=== PATIENT | female | born 2005 | race Caucasian/White ===

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

== ENCOUNTER 2024-10-22 01:37 | Emergency (ER) | payer OTHER, SELFPAY ==
[2024-10-22 01:41] VITALS: BP 131/89; PULSE 88; TEMP 36.8; O2SAT 99; BMI 28.3
--- OUTSIDE RECORDS SUMMARY | 2024-10-22 01:47 | XMS_ITS | CCD ---
Author Organization [facility] Care Team Providers Care Mixing Plant Operator Name Role Phone CARMITA DEVI Unavailable Unavailable MABLE CHAPA Unavailable Unavailable MABLE POLK Admitting Unavailable MABLE POLK Attending Unavailable MANPREET CALDWELL Consulting Unavailable MABLE POLK Consulting Unavailable SHERIDAN LEBLANC Consulting Unavailable RICHARD PANCHAL Referring Unavailable Irma Lobo Attending Unavailable Irma Lobo Admitting Unavailable Medications Current Medications Medication Drug Class(es) Dates Sig (Normalized) Sig (Original) phenazopyridine hydrochloride 200 mg oral tablet (1 source) Start: 07-05-2024 take 1 tablet by mouth three times daily as needed for pain Phenazopyridine (Pyridium) 200 mg tablet Active 200 MG PO Three times daily as needed for pain 9 July 05, 2024 12:00am sulfamethoxazole 800 mg / trimethoprim 160 mg oral tablet (1 source) Dihydrofolate Reductase Inhibitor Antibacterial, Sulfonamide Antimicrobial Start: 07-05-2024 take 1 tablet by mouth every twelve hours Sulfamethoxazole-Tr imethoprim 800-160 mg tablet Active 1 TAB PO Every 12 hours 10 July 05, 2024 12:00am Problems Active Problems Problem Classification Problem Date Documented Da te Episodic/Chronic Suicide and intentional self-inflicted injury (3 sources) Suicidal ideations; Translations: [SUICIDAL IDEATIONS] Onset: 06-05-2021 Episodic Unclassified (1 source) CONTACT W/AND (SUSP) EXPOS COVID-19; Translations: [CONTACT W/AND (SUSP) EXPOS COVID-19] Onset: 06-08-2021 Urinary tract infections (1 source) Urinary tract infection, site not specified; Translations: [Urinary tract infection, site not specified] Onset: 07-05-2024 Episodic Past or Other Problems Problem Classification Problem Date Documented Da te Episodic/Chronic Other ear and sense organ disorders (1 source) Abscess of left external ear; Translations: [Abscess of left external ear] Onset: 06-27-2017 Episodic Results Test Name Value Interpretation Reference Range Facil itfrancisco Urine Cultureon 07-05-2024 Bacteria identified Cx Nom (U) ORGANISM: Escherichia coli (O:ESCCOL) [place] Count >100,000 Aerobic TILA Charge (NMIC56) ----- SUSCEPTIBILITY ---- ORGANISM: O:ESCCOL ANTIBIOTIC INTERPRETATION TILA Amikacin S <16 Amoxacillin/K Clavulanate S <8 Ampicillin S <8 Ampicillin/Sulbactam S <4 Aztreonam S <4 Cefazolin S <2 Cefepime S <2 Ceftazidime S <1 Ceftazidime/Avibacta m S <4 Ceftolozane/Tazobact am S <2 Ceftriaxone S <1 Cefuroxime S <4 Ciprofloxacin S <0.25 Ertapenem S <0.5 Gentamicin S <2 Levofloxacin S <0.5 Meropenem S <1 Meropenem/Vaborbacta m S <2 Nitrofurantoin S <32 Piperacillin/Tazobac leavitt S <8 Tetracycline S <4 Tigecycline S <2 Tobramycin S <2 Trimethoprim/Sulfame thoxazole S <0.5 S = SUSCEPTIBLE I = INTERMEDIATE R = RESISTANT BLANK = DATA NOT AVAILABLE, OR DRUG NOT ADVISABLE OR TESTED R* = RESISTANCE DUE TO EXTENDED SPECTRUM BETA-LACTAMASES ESBL = EXTENDED SPECTRUM BETA-LACTAMASE TFG = THYMIDINE-DEPENDENT STRAIN MUNA = BETA-LACTAMASE POSITIVE IB = INDUCIBLE BETA-LACTAMASE. APPEARS IN PLACE OF 'S' WITH SPECIES KNOWN TO POSSESS INDUCIBLE BETA-LACTAMASES. POTENTIALLY THEY MAY BECOME RESISTANT TO ALL B-LACTAM DRUGS. PERFORMED BY: [place] [address] PATHOLOGIST FUND CONTROLLER CHIKIS GRIFFIN M.D. Normal [facility] Comment on above: Performed By: #### C UU #### [address] US PELVISon 02-13-2024 US PELVIS FINDINGS: No prior examinations available for comparison. Uterus 5.8 x 2.5 x 4.4 cm Endometrium 2 mm Right ovary 4.2 x 1.7 x 3.0 cm Left ovary 3.0 x 1.6 x 1.7 cm Normal uterine orientation and morphology are identified. No worrisome mass lesions are seen. Small amount of pelvic fluid is present (5 cc) Bilateral ovaries demonstrate small peripheral follicles, unremarkable in appearance. Overall appearance is normal for this age. IMPRESSION: 1. Bilateral ovarian follicles, largest within the right ovary (1.2 cm), no suspicious ovarian/adnexal mass 2. Small amount of pelvic fluid 3. Normal uterus TRANSCRIBED BY: ELECTRONICALLY SIGNED BY: Josh Thomas MD Normal Not Available ACETAMINOPHENon 06-05-2021 Acetaminophen [Mass/Vol] ug/mL Critically low 10.1-30.0 [facility] Comment on above: Performed By: #### S ALYC, ACET, CMP, ETH #### [facility] [address] [place] [address] Dr. Phillip Rosas CBC AUTO DIFFon 06-05-2021 BASO # 0.1 103/ul Normal 0.0-0.1 [facility] Comment on above: Performed By: #### C BC #### [facility] [address] [place] [address] Dr. Phillip Rosas Basophils/100 WBC (Bld) 0.8 % Normal 0.2-2.0 [facility] Comment on above: Performed By: #### C BC #### [facility] [address] [place] [address] Dr. Phillip Rosas EO # 0.2 103/ul Normal 0.0-0.7 [facility] Comment on above: Performed By: #### C BC #### [facility] [address] [place] [address] Dr. Phillip Rosas Eosinophils/100 WBC (Bld) 3.0 % Normal 0.9-7.0 [facility] Comment on above: Performed By: #### C BC #### [facility] [address] [place] [address] Dr. Phillip Rosas Erythrocyte distribution width (RBC) [Ratio] 14.4 % Normal 11.0-15.0 [facility] Comment on above: Performed By: #### C BC #### [facility] [address] [place] [address] Dr. Phillip Rosas Hematocrit (Bld) [Volume fraction] 32.8 % Critically low 36.0-48.0 [facility] Comment on above: Performed By: #### C BC #### [facility] [address] [place] [address] Dr. Phillip Rosas Hemoglobin (Bld) [Mass/Vol] 10.7 g/dL Critically low 12.0-16.0 [facility] Comment on above: Performed By: #### C BC #### [facility] [address] [place] [address] Dr. Phillip Rosas IG # 0.02 10e3/ul Normal 0.00-0.03 [facility] Comment on above: Performed By: #### C BC #### [facility] [address] [place] [address] Dr. Phillip Rosas IG % 0.3 % Normal 0.0-0.5 [facility] Comment on above: Performed By: #### C BC #### [facility] [address] [place] [address] Dr. Phillip Rosas LYMPH # 1.3 103/ul Normal 1.2-3.8 [facility] Comment on above: Performed By: #### C BC #### [facility] [address] [place] [address] Dr. Phillip Rosas Lymphocytes/100 WBC (Bld) 21.3 % Normal 20.5-60.0 [facility] Comment on above: Performed By: #### C BC #### [facility] [address] [place] [address] Dr. Phillip Rosas MANUAL DIFF REQ NO Normal [facility] Comment on above: Performed By: #### C BC #### [facility] [address] [place] [address] Dr. Phillip Rosas MCH (RBC) [Entitic mass] 28.2 pg Normal 26.7-34.0 [facility] Comment on above: Performed By: #### C BC #### [facility] [address] [place] [address] Dr. Phillip Rosas MCHC (RBC) [Mass/Vol] 32.6 g/dL Normal 29.9-35.2 [facility] Comment on above: Performed By: #### C BC #### [facility] [address] [place] [address] Dr. Phillip Rosas MCV (RBC) [Entitic vol] 86.3 fL Normal 79.1-95.6 [facility] Comment on above: Performed By: #### C BC #### [facility] [address] [place] [address] Dr. Phillip Rosas MONO # 0.5 103/ul Normal 0.3-0.8 [facility] Comment on above: Performed By: #### C BC #### [facility] [address] [place] [address] Dr. Phillip Rosas Monocytes/100 WBC (Bld) 7.4 % Normal 1.7-12.0 [facility] Comment on above: Performed By: #### C BC #### [facility] [address] [place] [address] Dr. Phillip Rosas NEUT # 4.2 103/ul Normal 1.4-6.5 [facility] Comment on above: Performed By: #### C BC #### [facility] [address] [place] [address] Dr. Phillip Rosas Neutrophils/100 WBC (Bld) 67.2 % Normal 43.0-75.0 [facility] Comment on above: Performed By: #### C BC #### [facility] [address] [place] [address] Dr. Phillip Rosas Platelet mean volume (Bld) [Entitic vol] 10.0 fL Normal 9.5-13.5 [facility] Comment on above: Performed By: #### C BC #### [facility] [address] [place] [address] Dr. Phillip Rosas PLT 303 103/ul Normal 150-450 [facility] Comment on above: Performed By: #### C BC #### [facility] [address] [place], [place] [address] Dr. Phillip Rosas RBC 3.80 106/ul Normal 3.40-5.30 [facility] Comment on above: Performed By: #### C BC #### [facility] [address] [place], [place] [address] Dr. Phillip Rosas WBC 6.2 103/ul Normal 4.0-11.0 [facility] Comment on above: Performed By: #### C BC #### [facility] [address] [place] [address] [address] Phillip Rosas Covid-19 PCR ([facility])on 05-16 SARS-CoV-2 (COVID-19) RNA PAULINE+probe Ql (Unsp spec) Not detected Normal NOT DETECTED [facility] Comment on above: Result Comment: This test is not yet approved or cleared by the [place] FDA. When there are no FDA-approved or cleared tests available, and other criteria are met, FDA can make tests available under an emergency access mechanism called an Emergency Use Authorization (EUA). The EUA for this test is supported by the Retail Branch Manager of Health and Human Service's (HHS's) declaration that circumstances exist to justify the emergency use of in vitro diagnostics for the detection and/or diagnosis of the virus that causes COVID-19. This EUA will remain in effect (meaning this test can be used) for the duration of the COVID-19 declaration justifying emergency of IVDs, unless it is terminated or revoked by FDA (after which the test may no longer be used). When diagnostic testing is negative, the possibility of a false negative should be considered in the context of a patient's recent exposures and the presence of clinical signs and symptoms consistent with SARS-CoV-2. When diagnostic testing is negative, the possibility of a false negative should be considered in the context of a patient's recent exposures and the presence of clinical signs and symptoms consistent with SARS-CoV-2. Performed By: #### C VDTBH #### [facility] [address] [place] [address] Dr. Phillip Rosas DRUG SCREEN RAPID (URINE)on 06-05-2021 AMP Negative Normal NEGATIVE [facility] Comment on above: Performed By: #### P REGU, DRUGRPD, ERUR #### [facility] [address] [address] [address] Phillip Rosas BAR Negative Normal NEGATIVE [facility] Comment on above: Performed By: #### P REGU, DRUGRPD, ERUR #### [facility] [address] [place] [address] Dr. Phillip Rosas BUP Negative Normal NEGATIVE [facility] Comment on above: Performed By: #### P REGU, DRUGRPD, ERUR #### [facility] [address] [address] [address] Phillip Rosas BZO Negative Normal NEGATIVE [facility] Comment on above: Performed By: #### P REGU, DRUGRPD, ERUR #### [facility] [address] [place] [address] Dr. Phillip Rosas NANNETTE Negative Normal NEGATIVE [facility] Comment on above: Performed By: #### P REGU, DRUGRPD, ERUR #### [facility] [address] [place] [address] Dr. Phillip Rosas CUT-OFFS SEE BELOW Normal [facility] Comment on above: Result Comment: AMP (Amphetamine): 500ng/mL, BAR (Barbituates): 200 ng/mL, BZO (Benzodiazepines): 150 ng/mL, BUP (Buprenorphine): 10 ng/mL, NANNETTE (Cocaine): 150 ng/mL, mAMP (Methamphetamine): 500 ng/mL, MTD (Methadone): 200 ng/mL, OPI (Opiates): 100 ng/mL, OXY (Oxycodone): 100 ng/mL, PCP (Phencyclidine): 25 ng/mL, PPX (Propoxyphene): 300 ng/mL, THC (Cannabinoids): 50 ng/mL, TCA (Trycyclic Antidepressants): 300 ng/mL Performed By: #### P REGU, DRUGRPD, ERUR #### [facility] [address] [place] [address] Dr. Phillip Rosas DRUG CUT HEADER DRUG CLASS TEST SYSTEM CUT-OFF CONCENTRATIONS ARE FOLLOWS: Normal [facility] Comment on above: Performed By: #### P REGU, DRUGRPD, ERUR #### [facility] [address] [address] [address] Phillip Rosas mAMP Negative Normal NEGATIVE [facility] Comment on above: Performed By: #### P REGU, DRUGRPD, ERUR #### [facility] [address] [place] [address] Dr. Phillip Rosas MTD Negative Normal NEGATIVE [facility] Comment on above: Performed By: #### P REGU, DRUGRPD, ERUR #### [facility] [address] [address] [address] Phillip Rosas OPI Negative Normal NEGATIVE [facility] Comment on above: Performed By: #### P REGU, DRUGRPD, ERUR #### [facility] [address] [place] [address] Dr. Phillip Rosas OXY Negative Normal NEGATIVE [facility] Comment on above: Performed By: #### P REGU, DRUGRPD, ERUR #### [facility] [address] [place] [address] Dr. Phillip Rosas PCP Negative Normal NEGATIVE [facility] Comment on above: Performed By: #### P REGU, DRUGRPD, ERUR #### [facility] [address] [address] [address] Phillip Rosas PPX Negative Normal NEGATIVE [facility] Comment on above: Performed By: #### P REGU, DRUGRPD, ERUR #### [facility] [address] [address] [address] Phillip Rosas TCA Negative Normal NEGATIVE [facility] Comment on above: Performed By: #### P REGU, DRUGRPD, ERUR #### [facility] [address] [address] [address] Phillip Rosas THC Negative Normal NEGATIVE [facility] Comment on above: Performed By: #### P REGU, DRUGRPD, ERUR #### [facility] [address] [place] [address] Dr. Phillip Rosas ER URINE PROFILEon 1 Bilirubin Ql (U) Negative Normal NEGATIVE [facility] Comment on above: Performed By: #### P REGU, DRUGRPD, ERUR #### [facility] [address] [address] [address] Phillip Rosas Clarity (U) CLEAR Normal CLEAR [facility] Comment on above: Performed By: #### P REGU, DRUGRPD, ERUR #### [facility] [address] [address] [address] Phillip Rosas Color (U) YELLOW Normal YELLOW [facility] Comment on above: Performed By: #### P REGU, DRUGRPD, ERUR #### [facility] [address] [address] [address] Phillip HAYS A micrscopic examination will be performed if indicated. Normal [facility] Comment on above: Performed By: #### P REGU, DRUGRPD, ERUR #### [facility] [address] [address] [address] Phillip Rosas Glucose Ql (U) Negative Normal NEGATIVE [facility] Comment on above: Performed By: #### P REGU, DRUGRPD, ERUR #### [facility] [address] [address] [address] Phillip Rosas Hemoglobin Ql (U) Negative Normal NEGATIVE [facility] Comment on above: Performed By: #### P REGU, DRUGRPD, ERUR #### [facility] [address] [address] [address] Phillip Rosas Ketones Ql (U) 15 mg/dl Abnormal NEGATIVE [facility] Comment on above: Performed By: #### P REGU, DRUGRPD, ERUR #### [facility] [address] [address] [address] Phillip Rosas LEUKOCYTES Negative Normal NEGATIVE [facility] Comment on above: Performed By: #### P REGU, DRUGRPD, ERUR #### [facility] [address] [address] [address] Phillip Rosas Nitrite Ql (U) Negative Normal NEGATIVE [facility] Comment on above: Performed By: #### P REGU, DRUGRPD, ERUR #### [facility] [address] [place] [address] Dr. Phillip Rosas pH (U) 6.0 [pH] Normal 5-9 [facility] Comment on above: Performed By: #### P REGU, DRUGRPD, ERUR #### [facility] [address] [place] [address] Dr. Phillip Rosas SPEC GRAVITY 1.025 Normal 1.005-<=1.025 [facility] Comment on above: Performed By: #### P REGU, DRUGRPD, ERUR #### [facility] [address] [place] [address] Dr. Phillip Rosas UA PROTEIN Negative Normal NEGATIVE/ TRACE [facility] Comment on above: Performed By: #### P REGU, DRUGRPD, ERUR #### [facility] [address] [place] [address] Dr. Phillip Rosas UR MICRO IND NOT INDICATED Normal [facility] Comment on above: Performed By: #### P REGU, DRUGRPD, ERUR #### [facility] [address] [place] [address] Dr. Phillip Rosas Urobilinogen Qn (U) 0.2 {Pedro'U}/dL Normal 0.2 - 1. 0 [facility] Comment on above: Performed By: #### P REGU, DRUGRPD, ERUR #### [facility] [address] [place] [address] Dr. Phillip Rosas ETHANOL (BLD ALC)on 06-05-20 ALC NOTE NOTE: 80 mg/dl is the legal limit for a blood alcohol level Normal [facility] Comment on above: Performed By: #### S ALYC, ACET, CMP, ETH #### [facility] [address] [place] [address] Dr. Phillip Rosas Ethanol [Mass/Vol] mg/dL Normal [facility] Comment on above: Performed By: #### S ALYC, ACET, CMP, ETH #### [facility] [address] [place] [address] Dr. Phillip Rosas URon 10-22-2021 , QUAL Negative Normal NEGATIVE [facility] Comment on above: Performed By: #### P REGU, DRUGRPD, ERUR #### [facility] [address] [address] [address] Phillip Rosas PROF 14(COMP METB)on 021 Albumin [Mass/Vol] 4.2 g/dL Normal 3.5-5.0 [facility] Comment on above: Performed By: #### S ALYC, ACET, CMP, ETH #### [facility] [address] [address] [address] Phillip Rosas Albumin/Globulin [Mass ratio] 1.3 {ratio} Normal [facility] Comment on above: Performed By: #### S ALYC, ACET, CMP, ETH #### [facility] [address] [place] [address] Dr. Phillip Rosas ALP [Catalytic activity/Vol] 76 U/L Normal 65-260 [facility] Comment on above: Performed By: #### S ALYC, ACET, CMP, ETH #### [facility] [address] [address] [address] Phillip Rosas ALT [Catalytic activity/Vol] 17 U/L Normal 9-52 [facility] Comment on above: Performed By: #### S ALYC, ACET, CMP, ETH #### [facility] [address] [address] [address] Phillip Rosas Anion gap [Moles/Vol] 14.6 mmol/L Normal [facility] Comment on above: Performed By: #### S ALYC, ACET, CMP, ETH #### [facility] [address] [address] [address] Phillip Rosas AST [Catalytic activity/Vol] 15 U/L Normal 14-36 [facility] Comment on above: Performed By: #### S ALYC, ACET, CMP, ETH #### [facility] [address] [address] [address] Phillip Rosas Bilirubin [Mass/Vol] 1.1 mg/dL Normal 0.2-1.3 [facility] Comment on above: Performed By: #### S ALYC, ACET, CMP, ETH #### [facility] [address] [address] [address] Phillip Rosas Calcium [Mass/Vol] 9.0 mg/dL Normal 8.4-10.2 [facility] Comment on above: Performed By: #### S ALYC, ACET, CMP, ETH #### [facility] [address] [place] [address] Dr. Phillip Rosas Chloride [Moles/Vol] 104 mmol/L Normal 98-107 [facility] Comment on above: Performed By: #### S ALYC, ACET, CMP, ETH #### [facility] [address] [place] [address] Dr. Phillip Rosas CO2 [Moles/Vol] 26.2 mmol/L Normal 22.0-30.0 [facility] Comment on above: Performed By: #### S ALYC, ACET, CMP, ETH #### [facility] [address] [place] [address] Dr. Phillip Rosas Creatinine [Mass/Vol] 0.71 mg/dL Normal 0.52-1.04 [facility] Comment on above: Performed By: #### S ALYC, ACET, CMP, ETH #### [facility] [address] [place] [address] Dr. Phillip Rosas Globulin (S) [Mass/Vol] 3.3 g/dL Normal [facility] Comment on above: Performed By: #### S ALYC, ACET, CMP, ETH #### [facility] [address] [place] [address] Dr. Phillip Rosas Glucose [Mass/Vol] 98 mg/dL Normal 74-106 [facility] Comment on above: Performed By: #### S ALYC, ACET, CMP, ETH #### [facility] [address] [place] [address] Dr. Phillip Rosas Potassium [Moles/Vol] 3.8 mmol/L Normal 3.4-5.0 [facility] Comment on above: Performed By: #### S ALYC, ACET, CMP, ETH #### [facility] [address] [address] [address] Phillip Rosas Protein [Mass/Vol] 7.5 g/dL Normal 6.1-8.2 [facility] Comment on above: Performed By: #### S ALYC, ACET, CMP, ETH #### [facility] [address] [place] [address] Dr. Phillip Rosas Sodium [Moles/Vol] 141 mmol/L Normal 137-145 [facility] Comment on above: Performed By: #### S ALYC, ACET, CMP, ETH #### [facility] [address] [place] [address] Dr. Phillip Rosas Urea nitrogen [Mass/Vol] 16.0 mg/dL Normal 6.4-19.3 [facility] Comment on above: Performed By: #### S ALYC, ACET, CMP, ETH #### [facility] [address] [place] [address] Dr. Phillip Rosas Urea nitrogen/Creatinine [Mass ratio] 22.5 mg/mg Normal [facility] Comment on above: Performed By: #### S ALYC, ACET, CMP, ETH #### [facility] [address] [place] [address] Dr. Phillip Rosas SALICYLATEon 06-05-2021 SALICYLATE <1.0 Normal <=20.0 [facility] Comment on above: Performed By: #### S ALYC, ACET, CMP, ETH #### [facility] [address] [place] [address] Dr. Phillip Rosas Cult,Woundon 06-30-2017 Cult,Wound Specimen Description .EAR Performed at [facility] [address] [place] [address] ([phone] Special Requests NOT REPORTEDDirect Exam NO NEUTROPHILS SEEN NO BACTERIA SEEN Culture NO GROWTH 2 DAYS Performed at [address] [address] Report Status FINAL 06/30/2017 Normal [facility] Comment on above: Performed By: #### W DC ####[address] [phone] [place] [address] Vital Signs Date Time Vital Sign Value Performing Clinician Aquiles nevarez 07-05-2024 10:050 Body height 157.48 cm [facility] 07-05-2024 10:-0500 Body mass index (BMI) [Percentile] Per age and sex 93.5 % [facility] 07-05-2024 10:-0500 Body mass index (BMI) [Ratio] 30.2 kg/m2 [facility] 07-05-2024 10:-0500 Body temperature 98 [degF] [facility] 07-05-2024 10:-0500 Body weight 75.01 kg [facility] 07-05-2024 10:22-0500 Diastolic blood pressure 78 mm[Hg] [facility] 07-05-2024 10:22-0500 Heart rate 68 /min [facility] 07-05-2024 10:22-0500 Respiratory rate 18 /min [facility] 07-05-2024 10:22-0500 SaO2% (BldA) [Mass fraction] 98 % [facility] 07-05-2024 10:22-0500 Systolic blood pressure 117 mm[Hg] [facility] Encounters Encounter Date Encounter Type Care Provider Facility Start: 07-05-2024 End: 07-05-2024 ambulatory Irma Lobo [facility] Work Phone: Start: 07-05-2024 End: 07-05-2024 Patient encounter procedure [facility] Work Phone: Start: 02-13-2024 End: 02-13-2024 ambulatory RICHARD PANCHAL Not Available Start: 06-08-2021 Encounter for other general examination MABLE POLK [facility] Start: 06-05-2021 End: 06-06-2021 ambulatory MABLE POLK Facility: Start: 06-27-2017 End: 06-28-2017 Ambulatory CARMITA [facility] Procedures Date Procedure Procedure Detail Performing Clinician Start: 06-27-2017 WOUND CULTURE CARMITA [facility] Plan of Treatment Date Care Activity Detail Author Urine culture [facility] Payers Date Payer Category Payer Self-pay 2024 Unknown [id number] 2016 Unknown [id number] 1975 Unknown [id number] 1959 Unknown [id number] Unknown [id number] Social History Date Type Detail Facility Start: 07-05-2024 Tobacco smoking stat us AKIS Never smoked tobacco (finding) [facility] Start: 07-05-2024 Sex Female (finding) [facility] Start: 2005 Sex Assigned At Female F [facility] Evaluation note Note Date & Type Note Facility Evaluation note No assessment information availa [facility] Work Phone: Summary Purpose Family History No Family History Records Found Relationship Condition Age at Onset Recorded Date/T kala mother Hypertension Unknown Advance Directives No Advanced Directives Records Found Advance Directive Response Recorded Date/ Time Advance Directives No June 10:17am Chief Complaint and Reason for Visit Chief Complaint Admit Date Poss UTI July 05, 2024 10:20am Additional Source Comments INFORMATION SOURCE (unrecogn ized section and content) DATE CREATED AUTHOR 02/07/2018 [facility] DATE CREATED AUTHOR AUTHOR'S ORGANIZ ATION 06/08/2021 [facility] DATE CREATED AUTHOR AUTHOR'S ORGANIZ ATION 02/17/2024 [facility] EPIC DATE CREATED AUTHOR AUTHOR'S ORGANIZ ATION 07/11/2024 [facility] Care Teams (unrecognized sec tion and content) Team Status: Active Member Role Status Dates NON STAFF Primary Care Provider Active Team Status: Inactive Member Role Status Dates Irma Lobo APRN Attending Provider Active Start: July 05, 2024 End: July 05, 2024 NON STAFF Primary Care Provider Active Start: July 05, 2024 End: July 05, 2024 Goals (unrecognized section and content) Goals may be documented in a n alternate section FOR RECORDS PERTAINING TO PATIENTS WHO ARE OR HAVE BEEN ENROLLED IN A CHEMICAL DEPENDENCY/SUBSTANCEABUSE PROGRAM, SOME INFORMATION MAY BE OMITTED. This clinical summary was aggregated from multiple sources. Caution should be exercised in using it in the provision of clinical care. This summary normalizes information from multiple sources, and as a consequence, information in this document may materially change the coding, format and clinical context of patient data. In addition, data may be omitted in some cases. CLINICAL DECISIONS SHOULD BE BASED ON THE PRIMARY CLINICAL RECORDS. [facility] [employer] provides no warranty or guarantee of the accuracy or completeness of information in this document.
--- NOTE | 2024-10-22 02:04 | ED.GENADUL1 ---
HPI HPI - General Adult General Chief complaint: Vaginal Bleeding Stated complaint: MENSTRUAL ISSUE Time Seen by Provider: 10/22/24 01:57 Source: patient Mode of arrival: walk-in Limitations: no limitations History of Present Illness HPI narrative: Patient is a 19-year-old female who is presenting to the ER today with chief concern of heavier vaginal bleeding that occurred today. Patient was soaking through a super tampon for couple hours and had larger clots today than usual. Patient has been on her menses this month for 2 days. Patient stands there is no chance she is , does not need to be checked. Patient's EDUCATION GENERAL MANAGER is in [place], Dr. Sheridan. Patient has seen Dr. Sheridan over a year ago for a cyst. Patient's had no trauma. Patient works at [employer]. No trauma, no heavy falls or any heavy injury or any other acute concerns today. Patient was having some bleeding and passed a heavier clot and then patient became lightheaded that lasted only a minute or 2. Patient did not have a near syncopal episode. No headache or neck pain. No chest pain or shortness of breath. Patient has no other acute complaints. Patient vital signs and very normal. All systems are negative except as noted/marked. All systems reviewed and otherwise negative. Nurses note and vital signs reviewed and patient is not hypoxic. Not hypotensive, not tachycardic General: The patient appears well and in no apparent distress. Patient is resting comfortably on cart. Patient is not toxic, lethargic, or listless Skin: Warm, dry, no pallor noted. There is no rash noted. No petechiae, purpura. Head: Normocephalic, atraumatic Eye: Normal conjunctiva, no drainage, EOMI. PERRL Ears, Nose, Mouth, and Throat: oral mucosa is moist. Nares patent. Mouth without vesicles. Cardiovascular: Regular Rate and Rhythm, no murmur, gallop, rub Respiratory: Patient is in no distress, no accessory muscle use, lungs are clear to auscultation, no wheezing, rales or rhonchi Back: non-tender, no CVA tenderness bilaterally to percussion. No CT LS midline pain GI: Minimal suprapubic tenderness to palpation, no peritoneal signs, no flank pain bilateral. No other acute complaints. No tenderness to palpation, no masses appreciated. No rebound, guarding, or rigidity noted. No distention. Patient has a nonsurgical abdomen. Musculoskeletal: Patient has full range of motion of all of the extremities, no motor, sensory, or focal neurological deficits. Neurological: A&O x4, normal speech Psychiatric: Cooperative Related Data Home Medications ?Medication ?Instructions ?Recorded ?Confirmed No Known Home Medications 10/22/24 10/22/24 Allergies Allergy/AdvReac Type Severity Reaction Status Date / Time No Known Drug Allergies Allergy Verified 10/22/24 01:48 Opioid HPI Opioid Management Most Recent Opioid Data: No Data to Display PFSH PFSH Social History Little interest or pleasure in doing things: not at all Feeling down, depressed, or hopeless: not at all Exam Constitutional Vital Signs, click to edit/add: Last Vital Signs Temp 98.2 F 10/22/24 01:41 Pulse 88 10/22/24 01:41 Resp 18 10/22/24 01:41 BP 131/89 10/22/24 01:41 Pulse Ox 99 10/22/24 01:41 O2 Del Method Room Air 10/22/24 01:41 Course Vital Signs Vital signs: Vital Signs Temperature 98.2 F 10/22/24 01:41 Pulse Rate 88 10/22/24 01:41 Respiratory Rate 18 10/22/24 01:41 Blood Pressure 131/89 10/22/24 01:41 Pulse Oximetry 99 10/22/24 01:41 Oxygen Delivery Method Room Air 10/22/24 01:41 Temperature 98.2 F 10/22/24 01:41 Pulse Rate 88 10/22/24 01:41 Respiratory Rate 18 10/22/24 01:41 Blood Pressure 131/89 10/22/24 01:41 Pulse Oximetry 99 10/22/24 01:41 Oxygen Delivery Method Room Air 10/22/24 01:41 Medical Decision Making MDM Narrative Medical decision making narrative: When I walked into the room and perform HPI on patient, I was on speaker phone with mother and I did not know that. Patient physical exam shows no acute findings. Mother was on speaker phone, I discussed patient's symptoms with patient and mother. There is no other acute concern from patient or mother besides heavier bleeding today, having a very brief episode of feeling lightheaded but not passing out and patient stated she had abdominal cramping earlier but does not have any at this time. Patient has nonsurgical abdomen. Patient was educated on calling Dr. Reeves there today. Leslie RN went to give patient discharge paperwork, patient was aware that she will be getting discharge paperwork and education on heavier bleeding. Patient had left without treatment being completed and did not receive her paperwork. Discharge Plan Discharge Chief Complaint: Vaginal Bleeding Clinical Impression: Menorrhagia Patient Disposition: Home, Self-Care Time of Disposition Decision: 02:04 Condition: Fair Prescriptions / Home Meds: No Action No Known Home Medications Print Language: Citizen Of [place] Instructions: Abnormal (Dysfunctional) Uterine Bleeding (ED), Menorrhagia (ED) Additional Instructions: Call Dr. Sheridan in the morning for follow-up and further evaluation. Increase fluids at home. Use [id number] Midol if needed for abdominal cramping Referrals: Physician,Non-Staff, MD [Primary Care Provider] - 1 week
== END 2024-10-22 02:09 | disposition home or self-care (01) ==
PROVIDERS: Emergency Provider Emergency Medicine
DX: N92.0 Excessive and frequent menstruation with regular cycle (principal)
CPT/HCPCS: 99281